=== PATIENT | female | born 1995 | race American Indian/Alaskan Native ===

== ENCOUNTER 2019-04-12 17:58 | Emergency (ER) | payer OTHER ==
[2019-04-12] MEDS ORDERED: BOOSTRIX IM ONE (18:47)
[2019-04-12] MEDS ORDERED: XYLOCAINE 2% INFILTRATI STA (18:47)
[2019-04-12] MEDS ORDERED: TYLENOL ONE (19:48)
--- NOTE | 2019-04-12 19:50 | XRay Report ---
PROCEDURE: XR FINGER(S) 2+V RT HISTORY: rt finger pain/laceration 5th digit FINDINGS: PA view of the right hand were was acquired as well as lateral and oblique views of the fif th digit. No fracture or foreign body is seen in the fifth digit. IMPRESSION: No fracture or foreign body of the fifth digit This document is electronically signed by Kahlil Domínguez MD., April 12 2019 07:48:20 PM ET
[2019-04-12] MEDS ORDERED: TYLENOL PO ONE (20:06)
--- NOTE | 2019-04-12 22:06 | Emergency Department Report ---
ED Upper Extremity Inj HPI - General Chief Complaint: Extremity Injury, Upper Stated Complaint: R FINGER INJURY Time Seen by Provider: 04/12/19 18:47 Source: patient Mode of arrival: Ambulatory Limitations: No Limitations, Other (Ms. Hudson is very hesitant with delivering her history of present illness the story is fluctuant ) - History of Present Illness Initial Comments: 23-year-old -Burmese female was department complaining of injury to her right finger. Face patient states she was cutting an unknown food when she lost control. Denies slicing her right finger. Since the laceration. She reports significant decrease in range of motion in all throbbing pain associated with bleeding. MD Complaint: Injury to:: right, finger -: Sudden Other Extremity Injury: Fingers: Right Handedness: right Improves With: none Worsens With: none Context: injury Associated Symptoms: denies other symptoms - Related Data Previous Rx's Medication Instructions Recorded Last Taken Type Ibuprofen [Motrin] 600 mg PO Q8H PRN #30 tablet 01/15/15 Unknown Rx methOCARBAMOL [Robaxin] 500 mg PO BID #10 tab 01/15/15 Unknown Rx traMADol [Ultram] 50 mg PO Q6HR PRN #14 tablet 01/15/15 Unknown Rx Acetaminophen/Codeine [Tylenol #3] 1 tab PO Q6H PRN #12 tab 04/12/19 Unknown Rx Chlorhexidine Gluconate [Hibiclens] 10 ml TP BID #240 liquid 04/12/19 Unknown Rx cephALEXin [Keflex] 500 mg PO Q6HR #40 capsule 04/12/19 Unknown Rx Allergies Allergy/AdvReac Type Severity Reaction Status Date / Time No Known Allergies Allergy Unverified 01/14/15 22:50 ED Review of Systems ROS: Stated complaint: R FINGER INJURY Other details as noted in HPI Constitutional: denies: chills, fever Eyes: denies: eye pain, eye discharge, vision change ENT: denies: ear pain, throat pain Respiratory: denies: cough, shortness of breath, wheezing Cardiovascular: denies: chest pain, palpitations Endocrine: no symptoms reported Gastrointestinal: denies: abdominal pain, nausea, diarrhea Genitourinary: denies: urgency, dysuria, discharge Musculoskeletal: denies: back pain, joint swelling, arthralgia Skin: denies: rash, lesions Neurological: denies: headache, weakness, paresthesias Psychiatric: denies: anxiety, depression Hematological/Lymphatic: denies: easy bleeding, easy bruising ED Past Medical Hx - Past Medical History Previous Medical History?: Yes Hx Asthma: Yes (childhood) - Surgical History Past Surgical History?: No - Social History Smoking Status: Never Smoker - Medications Home Medications: Home Medications Medication Instructions Recorded Confirmed Last Taken Type Ibuprofen [Motrin] 600 mg PO Q8H PRN #30 tablet 01/15/15 Unknown Rx methOCARBAMOL [Robaxin] 500 mg PO BID #10 tab 01/15/15 Unknown Rx traMADol [Ultram] 50 mg PO Q6HR PRN #14 tablet 01/15/15 Unknown Rx Acetaminophen/Codeine [Tylenol #3] 1 tab PO Q6H PRN #12 tab 04/12/19 Unknown Rx Chlorhexidine Gluconate [Hibiclens] 10 ml TP BID #240 liquid 04/12/19 Unknown Rx cephALEXin [Keflex] 500 mg PO Q6HR #40 capsule 04/12/19 Unknown Rx ED Physical Exam - General Limitations: No Limitations General appearance: alert, in no apparent distress - Head Head exam: Present: atraumatic, normocephalic - Eye Eye exam: Present: normal appearance, PERRL, EOMI Pupils: Present: normal accommodation - ENT ENT exam: Present: normal exam, normal orophraynx, mucous membranes moist, TM's normal bilaterally - Neck Neck exam: Present: normal inspection, full ROM - Respiratory Respiratory exam: Present: normal lung sounds bilaterally. Absent: respiratory distress, wheezes, rales, rhonchi, chest wall tenderness, accessory muscle use, decreased breath sounds - Cardiovascular Cardiovascular Exam: Present: regular rate, normal rhythm. Absent: systolic murmur, diastolic murmur, rubs, gallop - GI/Abdominal GI/Abdominal exam: Present: soft, normal bowel sounds. Absent: tenderness, guarding, rebound, hyperactive bowel sounds, hypoactive bowel sounds, organomegaly, mass, pulsatile mass - Extremities Exam Extremities exam: Present: normal inspection, full ROM, normal capillary refill - Expanded Upper Extremity Exam Right Hand Wrist exam: Present: laceration. Absent: tenderness, swelling, abrasion, ecchymosis, deformity, crepidus, dislocation, erythema, amputation, nail avulsion, subungual hematoma Hand L/R Front: 1 - Positive: laceration (jagged laceration full thickness second unable to flex the finger. Capillary refills are brisk reports decreased sensation with light touch. Continued bleeding from the wound. Once the gauze was removed) Vascular: Present: normal capillary refill - Back Exam Back exam: Present: normal inspection, full ROM. Absent: CVA tenderness (R), CVA tenderness (L), muscle spasm, paraspinal tenderness - Neurological Exam Neurological exam: Present: alert, oriented X3, CN II-XII intact, normal gait. Absent: motor sensory deficit, reflexes normal - Psychiatric Psychiatric exam: Present: normal affect, normal mood. Absent: flat affect, manic, homicidal ideation - Skin Skin exam: Present: warm, dry, normal color. Absent: rash, cyanosis, diaphoretic, erythema, petechiae, pallor, abrasion, ecchymosis ED Course Vital Signs 04/12/19 04/12/19 04/12/19 18:05 20:07 20:55 Temperature 98.8 F Pulse Rate 119 H Respiratory 22 18 18 Rate Blood Pressure 133/96 O2 Sat by Pulse 98 Oximetry - Procedure Description Procedures done: Preapproved and draped in sterile fashion anesthesia was achieved. 2% lidocaine no epinephrine. 5-0 nylon was placed in simple interrup grace fashion 6 for wound closure. Procedure was tolerated well. No soup. No subcutaneous sutures were placed. Laceration was 2 cm ED Medical Decision Making - Medical Decision Making 23-year-old female laceration to the right fifth digit with apparent tendon, tendon involvement. Discussed with the patient and her partner of the need for follow-up and specialist for definitive management. Wound was repaired with sutures and splinted. Discussed the to utilize in a biotics pain control as we discuss. Critical care attestation.: If time is entered above; I have spent that time in minutes in the direct care of this critically ill patient, excluding procedure time. ED Disposition Clinical Impression: Laceration of right little finger with tendon involvement Disposition: TO HOME OR SELFCARE Is pt being admited?: No Does the pt Need Aspirin: No Condition: Stable Instructions: Laceration (ED), Finger Laceration (ED), Suture Care (ED) Additional Instructions: Please be sure to follow with a hand specialist for reevaluation of a tendon laceration on your right fifth digit for definitive management. It is very likely that surgical intervention to correct the damage [facility] [Primary Care Provider[facility] - 3-5 Days SHAW BONILLA MD [Referring] - 3-5 Days HECTOR AYALA MD [Referring] - 3-5 Days
[2019-04-12 22:15] VITALS: BP 118/70
== END 2019-04-12 22:55 | disposition home or self-care (01) ==
LOC: ED 17:58
DX: S61.216A Laceration without foreign body of right little finger without damage to nail, initial encounter (principal); J45.909 Unspecified asthma, uncomplicated; W45.8XXA Other foreign body or object entering through skin, initial encounter; Y93.89 Activity, other specified; Y92.89 Other specified places as the place of occurrence of the external cause; Y99.8 Other external cause status
CPT/HCPCS: 90471; 90715

== ENCOUNTER 2019-04-24 16:30 | Emergency (ER) | payer OTHER ==
--- NOTE | 2019-04-24 18:13 | Emergency Department Report ---
Blank Doc - Documentation Documentation: Patient here for suture removal rt small finger that was placed at [facility] . Positive sutures noted to left small finger some embedded Foer suture removal
[2019-04-24] MEDS ORDERED: NORCO 5/325 PO ONE (20:14)
[2019-04-24] MEDS ORDERED: IBUPROFEN PO ONE (20:15)
[2019-04-24] MEDS ORDERED: ZOFRAN ODT PO ONE (20:15)
--- NOTE | 2019-04-24 20:22 | Emergency Department Report ---
ED General Adult HPI - General Chief complaint: Laceration/Recheck/Suture Stated complaint: STITCHES REMOVED Time Seen by Provider: 04/24/19 18:11 Source: patient Mode of arrival: Ambulatory Limitations: No Limitations - History of Present Illness Initial comments: Patient is a 23-year-old -[place]ian female with no past medical history presents to the ED with a pillow but fifth finger pain and suture removal from the right fifth finger after having laceration repair 2 weeks ago. Patient had presented to the ED with a laceration of the right fifth finger and had hypertensive lacerated her right fifth finger flexor tendons and was unable to perform any activity range of motion with the right fifth finger. Patient had been referred to the orthopedic surgeon salesperson pets [employer] pet [employer] that day, Dr. Ramsey but has not been able to do so due to costs involved. Patient returned to the ED today for suture removal and requesting for referral to another orthopedic surgeon if possible. Patient also states that she ran out of pain medications and completed antibiotics. The patient denies fever, chills, nausea, vomiting, dizziness, headache, numbness and tingling of the right hand. MD Complaint: Suture removal -: Sudden, week(s) (2) Location: upper extremity (right hand, 5th finger) Radiation: non-radiation Severity scale (0 -10): 7 Quality: aching, sharp Consistency: constant Improves with: none Worsens with: movement Associated Symptoms: denies other symptoms. denies: confusion, chest pain, cough, diaphoresis, fever/chills, headaches, loss of appetite, nausea/vomiting, rash, shortness of breath, syncope, weakness Treatments Prior to Arrival: none - Related Data Previous Rx's Medication Instructions Recorded Last Taken Type Ibuprofen [Motrin] 600 mg PO Q8H PRN #30 tablet 01/15/15 Unknown Rx methOCARBAMOL [Robaxin] 500 mg PO BID #10 tab 01/15/15 Unknown Rx traMADol [Ultram] 50 mg PO Q6HR PRN #14 tablet 01/15/15 Unknown Rx Acetaminophen/Codeine [Tylenol #3] 1 tab PO Q6H PRN #12 tab 04/12/19 Unknown Rx Chlorhexidine Gluconate [Hibiclens] 10 ml TP BID #240 liquid 04/12/19 Unknown Rx cephALEXin [Keflex] 500 mg PO Q6HR #40 capsule 04/12/19 Unknown Rx Ibuprofen [Motrin] 600 mg PO Q8H PRN #20 tablet 04/24/19 Unknown Rx cephALEXin [Keflex] 500 mg PO Q8HR #30 cap 04/24/19 Unknown Rx traMADol [Ultram] 50 mg PO Q6HR PRN #15 tablet 04/24/19 Unknown Rx Allergies Allergy/AdvReac Type Severity Reaction Status Date / Time No Known Allergies Allergy Verified 04/24/19 16:34 ED Review of Systems ROS: Stated complaint: STITCHES REMOVED Other details as noted in HPI Constitutional: denies: chills, fever Eyes: denies: eye pain, eye discharge, vision change ENT: denies: ear pain, throat pain Respiratory: denies: cough, shortness of breath, wheezing Cardiovascular: denies: chest pain, palpitations Gastrointestinal: denies: abdominal pain, nausea, diarrhea Genitourinary: denies: urgency, dysuria, discharge Musculoskeletal: arthralgia, other (right 5th finger tenderness due to a healing laceration, with limited ROM due to previous right 5th finger flexor tendon lacerations). denies: back pain, joint swelling Skin: denies: rash, lesions Neurological: weakness (right 5th finger weakness due to previous laceration of flexor tendons). denies: headache, paresthesias Psychiatric: denies: anxiety, depression Hematological/Lymphatic: denies: easy bleeding, easy bruising ED Past Medical Hx - Past Medical History Previous Medical History?: Yes Hx Asthma: Yes (childhood) - Surgical History Past Surgical History?: No - Social History Smoking Status: Never Smoker - Medications Home Medications: Home Medications Medication Instructions Recorded Confirmed Last Taken Type Ibuprofen [Motrin] 600 mg PO Q8H PRN #30 tablet 01/15/15 Unknown Rx methOCARBAMOL [Robaxin] 500 mg PO BID #10 tab 01/15/15 Unknown Rx traMADol [Ultram] 50 mg PO Q6HR PRN #14 tablet 01/15/15 Unknown Rx Acetaminophen/Codeine [Tylenol #3] 1 tab PO Q6H PRN #12 tab 04/12/19 Unknown Rx Chlorhexidine Gluconate [Hibiclens] 10 ml TP BID #240 liquid 04/12/19 Unknown Rx cephALEXin [Keflex] 500 mg PO Q6HR #40 capsule 04/12/19 Unknown Rx Ibuprofen [Motrin] 600 mg PO Q8H PRN #20 tablet 04/24/19 Unknown Rx cephALEXin [Keflex] 500 mg PO Q8HR #30 cap 04/24/19 Unknown Rx traMADol [Ultram] 50 mg PO Q6HR PRN #15 tablet 04/24/19 Unknown Rx ED Physical Exam - General Limitations: No Limitations General appearance: alert, in no apparent distress - Head Head exam: Present: atraumatic, normocephalic, normal inspection - Eye Eye exam: Present: normal appearance, PERRL, EOMI - ENT ENT exam: Present: normal exam, normal orophraynx, mucous membranes moist, TM's normal bilaterally, normal external ear exam - Neck Neck exam: Present: normal inspection, full ROM - Respiratory Respiratory exam: Present: normal lung sounds bilaterally. Absent: respiratory distress, wheezes, rales, rhonchi, chest wall tenderness, accessory muscle use, decreased breath sounds - Cardiovascular Cardiovascular Exam: Present: regular rate, normal rhythm, normal heart sounds. Absent: systolic murmur, diastolic murmur, rubs, gallop - GI/Abdominal GI/Abdominal exam: Present: soft, normal bowel sounds. Absent: distended, tenderness, guarding, rebound, hyperactive bowel sounds, hypoactive bowel sounds, organomegaly, mass - Rectal Rectal exam: Present: deferred - Extremities Exam Extremities exam: Present: normal inspection, tenderness (right 5th finger laceration wound, with weakness due to flexer tendon laceration), normal capillary refill. Absent: full ROM (due to right 5th finger weakness due to previous flexor tendon laceration ), pedal edema, joint swelling, calf tenderness - Back Exam Back exam: Present: normal inspection, full ROM. Absent: tenderness, CVA tenderness (R), CVA tenderness (L), muscle spasm, paraspinal tenderness, vertebral tenderness - Neurological Exam Neurological exam: Present: alert, oriented X3, CN II-XII intact, normal gait, motor sensory deficit (right 5th finger weakness due to a recent flexor tendon laceration), reflexes normal - Psychiatric Psychiatric exam: Present: normal affect, normal mood, anxious - Skin Skin exam: Present: warm, dry, intact, normal color. Absent: rash ED Course Vital Signs 04/24/19 16:39 Temperature 98.9 F Pulse Rate 67 Respiratory 16 Rate Blood Pressure 120/68 O2 Sat by Pulse 100 Oximetry - Reevaluation(s) Reevaluation #1: 04/24/19 20:28 Patient is alert and oriented 3 and is not in distress with normal vital signs. Patient was treated for pain and the sutures were removed from the right fifth finger laceration. The wound was cleaned thoroughly and dressed appropriately. The patient was discharged home on multiple medication and antibiotics, advised to follow up with either Dr. Ramsey, or Dr. Delaney, the orthopedic surgeons for further evaluation. Patient advised to return to the ED immediately if symptoms get worse. ED Medical Decision Making - Medical Decision Making Patient is alert and oriented 3 and is not in distress with normal vital signs. Patient was treated for pain and the sutures were removed from the right fifth finger laceration. The wound was cleaned thoroughly and dressed appropriately. The patient was discharged home on multiple medication and antibiotics, advised to follow up with either Dr. Ramsey, or Dr. Delaney, the orthopedic surgeons for further evaluation. Patient advised to return to the ED immediately if symptoms get worse. - Differential Diagnosis Tendon laceration of right 5th finger; suture removal, wound care Critical care attestation.: If time is entered above; I have spent that time in minutes in the direct care of this critically ill patient, excluding procedure time. ED Disposition Clinical Impression: Laceration of right little finger with tendon involvement, Encounter for removal of sutures Disposition: DC-01 TO HOME OR SELFCARE Is pt being admited?: No Does the pt Need Aspirin: No Condition: Stable Instructions: Laceration (ED), Finger Laceration (ED) Additional Instructions: Take medications with food, drink plenty of fluids and follow-up with Dr. Ramsey or Dr. Delaney, the Orthopedic Surgeons for further evaluation. return to the ED immediately if symptoms get worse. Prescriptions: cephALEXin [Keflex] 500 mg PO Q8HR #30 cap Ibuprofen [Motrin] 600 mg PO Q8H PRN #20 tablet PRN Reason: Pain traMADol [Ultram] 50 mg PO Q6HR PRN #15 tablet PRN Reason: Pain Referrals: ALEKSANDER DELANEY MD [Staff Physician] - 3-5 Days SHAW RAMSEY MD [Referring] - 3-5 Days Time of Disposition: 20:32 Print Language: ITALIAN
[2019-04-24 21:21] VITALS: BP 115/70
== END 2019-04-24 21:21 | disposition home or self-care (01) ==
LOC: ED 16:30
DX: S61.216D Laceration without foreign body of right little finger without damage to nail, subsequent encounter (principal); J45.909 Unspecified asthma, uncomplicated; X58.XXXD Exposure to other specified factors, subsequent encounter
CPT/HCPCS: 99282; Q0162